=== PATIENT | female | born 2000 | race Caucasian/White ===

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

== ENCOUNTER 2020-05-10 00:40 | Emergency (ER) | payer OTHER ==
[2020-05-10 00:51] VITALS: BP 120/69
--- NOTE | 2020-05-10 00:52 | ED Physician Documentation ---
PD HPI UPPER EXT INJURY - Stated complaint Stated Complaint: L WRIST INJ - History obtained from History obtained from: Patient - History of Present Illness Location: Left, Wrist Type of injury: Fall (today at work) Where injury occurred: Work Timing - duration: Hours (this afternoon) Timing - details: Abrupt onset (slipped and fell at work, landing onto left wrist.) Improved by: Rest Worsened by: Moving, Palpating Associated symptoms: No: Weakness, Numbness, Swelling Similar symptoms before: Has not had sx before Recently seen: Not recently seen Review of Systems Constitutional: denies: Fever Nose: denies: Rhinorrhea / runny nose, Congestion Throat: denies: Sore throat Respiratory: denies: Cough Skin: denies: Abrasion (s), Laceration (s) Musculoskeletal: reports: Joint pain (left wrist) Neurologic: denies: Focal weakness, Numbness PD PAST MEDICAL HISTORY - Past Medical History Past Medical History: No Respiratory: Other - Past Surgical History Past Surgical History: No - Present Medications Home Medications: Ambulatory Orders Medication Instructions Recorded Confirmed Fluticasone [Flonase] 05/10/20 Ibuprofen [Motrin] 600 mg PO TID PRN #20 tab 05/10/20 Loratadine [Allergy Relief] 10 mg PO DAILY 05/10/20 05/10/20 - Allergies Allergies/Adverse Reactions: Allergies Allergy/AdvReac Type Severity Reaction Status Date / Time No Known Drug Allergies Allergy Verified 05/10/20 00:52 - Social History Does the pt smoke?: No Smoking Status: Never smoker Does the pt drink ETOH?: No Does the pt have substance abuse?: No - Immunizations Immunizations are current?: Yes - POLST Patient has POLST: No PD ED PE NORMAL - Vitals Vital signs reviewed: Yes - General General: Alert and oriented X 3, No acute distress, Well developed/nourished - Derm Derm: Normal color, Warm and dry - Extremities Extremities: Other (left wrist tender dorsal area and also some to navicular area. No swelling, no noted deformity. ) - Neuro Neuro: Alert and oriented X 3, No motor deficit, No sensory deficit, Normal speech Results - Vitals Vitals: Vital Signs - 24 hr 05/10/20 00:49 Temperature 37.2 C Heart Rate 91 Respiratory 16 Rate Blood Pressure 120/69 O2 Saturation 100 Oxygen O2 Source Room air - Rads (name of study) left wrist Radiology: Prelim report reviewed (no fractures), See rad report PD MEDICAL DECISION MAKING - ED course Complexity details: reviewed results (no fractures), considered differential, d/w patient Departure - Departure Disposition: 01 Home, Self Care Clinical Impression: Accidental fall Qualifiers: Encounter type: initial encounter Qualified Code(s): W19.XXXA - Unspecified fall, initial encounter Left wrist sprain Qualifiers: Encounter type: initial encounter Qualified Code(s): S63.502A - Unspecified sprain of left wrist, initial encounter Condition: Stable Record reviewed to determine appropriate education?: Yes Instructions: ED Sprain Wrist Follow-Up: [facility] [Provider Group] Prescriptions: Ibuprofen [Motrin] 600 mg PO TID PRN #20 tab PRN Reason: Pain Comments: No fractures on x-ray. I presume your sprain will improve over the next several days to a week. Use the wrist splint and have light use of the left wrist for the next 3 to 5 days. Follow-up with your primary if not improved well enough during that time. Ibuprofen 600 mg 3 times a day if needed for pain and swelling. Add Tylenol if needed. Forms: Activity restrictions Discharge Date/Time: 05/10/20 02:03
[2020-05-10] MEDS ORDERED: IBUPROFEN 600 MG TABLET PO STA (01:02)
[2020-05-10] MEDS ORDERED: ACETAMINOPHEN 325 MG TABLET PO STA (01:02)
--- NOTE | 2020-05-10 08:41 | XRAY Report ---
PROCEDURE: Wrist 3 View LT INDICATIONS: FELL/LANDED L WRIST/ PAIN L WRIST TECHNIQUE: 4 views of the wrist were acquired. COMPARISON: None. FINDINGS: Bones: No fractures or dislocations. No suspicious bony lesions. Soft tissues: No suspicious soft tissue calcifications. IMPRESSION: No definite fracture however follow-up radiographs in 10 days could be performed if the patient's sym ptoms do not improve to exclude occult fracture/assess for healing sclerosis. Reviewed by: Timothy Magaña MD on 05/10/2020 8:40 AM [facility] Approved by: Timothy Magaña MD on 05/10/2020 8:40 AM [facility] Station ID: [id number]
== END 2020-05-10 02:03 | disposition home or self-care (01) ==
LOC: ED 00:40
DX: S63.502A Unspecified sprain of left wrist, initial encounter (principal); W01.0XXA Fall on same level from slipping, tripping and stumbling without subsequent striking against object, initial encounter; Y99.0 Civilian activity done for income or pay
CPT/HCPCS: 73110; 99282; 99283; A9270